=== PATIENT | female | born 1940 | race Caucasian/White ===

== ENCOUNTER 2018-04-11 10:00 | Emergency (ER) | payer OTHER ==
[2018-04-11 10:21] VITALS: PULSE 80; TEMP 97.5; BMI 25.9
--- NOTE | 2018-04-11 10:21 | PDOC ---
Attending Attestation - Resident Resident Name: Jimmy Kearneyie - ED Attending Attestation I have performed the following: I have examined & evaluated the patient, The case was reviewed & discussed with the resident, I agree w/resident's findings & plan, Exceptions are as noted - HPI HPI: 04/11/18 10:47 77y F hx of acid reflux presents with R chest pain. Pt states she was doing well until sunday or sunday, when she fell off her bed as her dog was taking up most of the bedm, she fell on her back and told her dughter on sunday she had mild rib pain on her right side. she had minimal soreness there, was well enough to go to the gym, do fencing lessons and do lat pull downs at the gym yesterday. She notse that she woke up last night feeling significantly worsened R sided cp and felt pain when she took a deep breath on her R chest, is sharp in nature, pain seems improvd if she is not breathing. denies any hemoptysis, cough, n/v, diaphoresis. has not taken any meds at home. no hstory of dvt, pe. denies any acute pain when sh ewas working out at the gym yesterday. GENERAL: The patient is awake, alert, and fully oriented, Nontoxic - in no acute distress. HEAD: Normocephalic, atraumatic. EYES: extraocular movements intact, sclera anicteric, conjunctiva clear. ENT: Normal voice, Moist mucous membranes. NECK: Normal range of motion, supple CHEST/LUNGS: Breath sounds equal, clear to auscultation bilaterally. No wheezes , no rhonchi, no rales. Mild TTP to palpation on R inferior rib wall HEART: Regular rate and rhythm, without murmur, rub or gallop. ABDOMEN: Soft, nontender, No guarding, no rebound.No CVA tenderness EXTREMITIES: Normal range of motion, no edema. No cyanosis. No erythema, or tenderness. NEUROLOGICAL: No facial assymetry, Normal speech, PSYCH: Normal mood, normal affect. SKIN: Warm, Dry, normal turgor, suspect possible muscle strain vs rib fx alhtough symptoms not consistently reproducible will give tylenol (t requests her own tylenol) rib series neg for xray, but noted for significant osteopenia will ck cxr, trop, dimer will reassess - Physicial Exam PE: 04/11/18 14:45 see above - Medical Decision Making 04/11/18 13:15 trop bumped at .11, still below threshold for MT, but will bear repeating nonspecific ekg findings awaiit d-dimer will give ASA 04/11/18 14:45 dimer elevated at 600s awating CTA to r/o PE pt hemodynamically stable, wella ppearing ambualting around asking for results 04/11/18 17:15 CTA neg repeat trop still borderlin, but not rising in trend pt left ama, declines [facility]. states she will fu with cards as outpt pt understandss he may return at any time for further reassessment and to complete her workup Heart Score/ECG Review - ECG Impressions Comment:: 04/11/18 12:20 EKG: Rate of 68, nonspecific TW abnormalitiy, no ST elevations no prior ekgs for comparison
--- NOTE | 2018-04-11 10:26 | PDOC ---
History of Present Illness - General Chief Complaint: Injury Stated Complaint: FELL, RIGHT RIB PAIN Time Seen by Provider: 04/11/18 10:17 - History of Present Illness Initial Comments: 04/11/18 10:21 77 year old woman with a history of GERD who presents after a fall 5 days ago where she tripped over her dog while trying to get on her bed and hit the R side of her ribcage on the bed frame and fell onto the ground. She noted the pain is 3/10 and goes to 7/10 when breathing in and has had shortness of breath since then. Yesterday she went to the gym and was doing 50 pound pull downs and noted that the rib pain and shortness of breath was much worse. She has not taken anything for pain as she does not like to take pain medications. She denies trauma to any other extremities, denies abdominal pain. She denies head trauma or neck pain. She has no other complaints at bedside. Past History - Past Medical History Allergies/Adverse Reactions: Allergies Allergy/AdvReac Type Severity Reaction Status Date / Time erythromycin base Allergy Hives Verified 04/11/18 10:14 [Erythromycin Base] pineapple [Pineapple] Allergy Verified 04/11/18 10:14 Home Medications: Ambulatory Orders Ranitidine HCl [Zantac] 150 mg PO BID 01/21/14 Triamterene/Hydrochlorothiazid [Maxzide 37.5 mg-25 mg Tablet] 1 each PO DAILY PRN 01/21/14 Cancer: Yes (MIXOMA LEFT LEG) GI Disorders: Yes (GERD) - Surgical History Orthopedic Surgery: Yes (Hip replacement surgery) - Suicide/Smoking/Psychosocial Hx Smoking History: Never smoked Hx Alcohol Use: Yes (SOCIAL) Substance Use Type: None *Physical Exam - Physical Exam Comments: 04/11/18 10:26 + kyphosis ctab slight tenderness to R side of sternum ED Treatment Course - LABORATORY CBC & Chemistry Diagram: 04/11/18 12:05 04/11/18 12:20 Medical Decision Making - Medical Decision Making 04/11/18 11:02 ED Course: consider msk vs ACS vs PE EKG: normal sinus at 68 HR, no interval abnormalities, narrow QRS, ST segments nonelevated, T wave inversions in II, III, aVF, V3-V6 04/11/18 14:01 trop 0.11 D-dimer: 658 recommend CTA Patient expresses desire to go home. 04/11/18 14:04 discussed approx 1.5 hours that significant of the patient's lab tests, our differential diagnosis, the risks of leaving the hospital which include , respiratory distress, cardiac arrest, acute [place]. The patient continues to desire to leave the hospital despite expresses understanding of th 04/11/18 15:32 CTA: no PE noted *DC/Admit/Observation/Transfer Diagnosis at time of Disposition: Musculoskeletal pain Rib contusion Qualifiers: Encounter type: initial encounter Laterality: right Qualified Code(s): S20.211A - Contusion of right front wall of thorax, initial encounter - Discharge Dispostion Disposition: AGAINST MEDICAL ADVICE Condition at time of disposition: Fair Decision to Admit order: No - Referrals Referrals: Kady Morales [Non Staff, Medical] - Yannick Espinoza MD [Staff Physician] - - Patient Instructions Printed Discharge Instructions: DI for Atypical Chest Pain Additional Instructions: You were seen in the ED for complaints of right sided rib pain. In the ED you were evaluated with labwork and imaging. Your results were significant for two elevated troponin and an elevated d-dimer It is recommended that you stay in the hospital for observation. It is recommended that you be admitted for telemetry observation in the hospital. The risks of leaving the hospital without complete evaluation for repeatedly elevated troponins include , cardiac arrest, heart attack, stroke and loss of consciousness. These risks have been discussed with your for > 1hour and 30min. You express understanding of these risks and still desire to leave the hospital against medical advice. You are advised to follow up with your Primary Care Physician within 1 week. Return to the ED immediately if you experience worsening rib pain, worsening shortness of breath, chest pain, repeated injury or fall, head trauma or loss of consciousness. - Post Discharge Activity
--- NOTE | 2018-04-11 11:59 | EKG ---
Test Reason : Blood Pressure : / mmHG Vent. Rate : 068 BPM Atrial Rate : 068 BPM P-R Int : 170 ms QRS Dur : 078 ms QT Int : 376 ms P-R-T Axes : 038 -06 -51 degrees QTc Int : 399 ms NORMAL SINUS RHYTHM NONSPECIFIC T WAVE ABNORMALITY ABNORMAL ECG NO PREVIOUS ECGS AVAILABLE Confirmed by JORDAN CARRENO, RONNIE ([id number]) on 04/11/2018 11:59:32 AM Referred By: SEMAJ BAIRES Confirmed By:RONNIE ORTEGA MD
[2018-04-11 12:00] VITALS: BP 148/80
[2018-04-11 12:16] LABS: BASO % 0.9 % (0-2.0); EOS % 1.8 % (0-4.5); HEMATOCRIT 40.5 % (32.4-45.2); HEMOGLOBIN 13.3 GM/dl (10.7-15.3); LYMPH % 27.8 % (8-40); MCH 29.1 pg (25.7-33.7); MCHC 32.8 g/dl (32.0-36.0); MEAN CELL VOLUME 88.6 fl (80-96); MEAN PLT VOLUME 8.8 fl (7.5-11.1); MONO % 9.2 % (3.8-10.2); NEUT % 60.3 % (42.8-82.8); PLATELET COUNT 360 K/MM3 (134-434); RBC 4.58 M/mm3 (3.60-5.2); RDW 14.2 % (11.6-15.6); WHITE BLOOD COUNT 7.7 K/mm3 (4.0-10.8)
[2018-04-11 12:47] LABS: ALBUMIN 3.8 g/dl (3.4-5.0); ALK PHOS 68 U/L (45-117); ANION GAP 12 MMOL/L (8-16); BILIRUBIN,TOTAL 0.8 mg/dl (0.2-1); BLOOD UREA NITROGEN 17 mg/dl (7-18); CALCIUM 8.9 mg/dl (8.5-10); CHLORIDE 99 mmol/L (98-107); CO2 22 mmol/L (21-32); CREATININE 0.9 mg/dl (0.55-1.3); GLUCOSE,RANDOM 109 mg/dl (74-106); POTASSIUM 3.7 mmol/L (3.5-5.1); SGOT/AST 24 U/L (15-37); SGPT/ALT 28 U/L (13-61); SODIUM 133 mmol/L (136-145); TOT PROT 6.5 g/dl (6.4-8.2)
[2018-04-11] MEDS ORDERED: ASPIRIN 81 MG CHEWABLE TABLETS PO ONE (13:07)
[2018-04-11] MEDS ORDERED: ASPIRIN 81 MG CHEWABLE TABLETS ONE (13:10)
== END 2018-04-11 16:17 | disposition left against medical advice (07) ==
LOC: SUPCPDRO 10:00 → FER 10:00
DX: S20.211A Contusion of right front wall of thorax, initial encounter (principal); M79.18 Myalgia, other site; K21.9 Gastro-esophageal reflux disease without esophagitis; W06.XXXA Fall from bed, initial encounter; Y93.89 Activity, other specified; Y92.003 Bedroom of unspecified non-institutional (private) residence as the place of occurrence of the external cause
CPT/HCPCS: 36415; 71046-TC-FY; 71111-TC-FY; 71275-TC; 80053; 84484; 85025; 85379; 93005; 99283-25